=== PATIENT | male | born 1955 | race Two or more races ===

== ENCOUNTER 2022-01-29 09:47 | Outpatient (CLI) | payer OTHER | END 2022-01-29 10:04 | disposition home or self-care (01) | LOC: TOM 09:47 | PROVIDERS: ATTEND Internal Medicine Gastroenterology | DX: Z12.11 Encounter for screening for malignant neoplasm of colon (principal); K56.601 Complete intestinal obstruction, unspecified as to cause ==

== ENCOUNTER 2025-03-28 07:21 | Outpatient (CLI) | payer OTHER | END 2025-03-28 07:22 | disposition home or self-care (01) | LOC: RAD 07:21 | PROVIDERS: ATTEND Internal Medicine Gastroenterology | DX: R10.13 Epigastric pain (principal); K21.9 Gastro-esophageal reflux disease without esophagitis; R10.84 Generalized abdominal pain ==